=== PATIENT | male | born 1975 | race Caucasian/White ===

== ENCOUNTER 2017-04-14 07:16 | Emergency (ER) | payer MEDICAID ==
[~2017-04-14] VITALS: Ht 175.3 cm; Wt 78.9 kg
[2017-04-14] MEDS ORDERED: KLONOPIN1 MG ORAL (07:31)
[2017-04-14] MEDS ORDERED: NORCO 10-325 T1 EACH ORAL (07:31)
[2017-04-14] MEDS ORDERED: BENADRYL25 MG ORAL (07:31)
[2017-04-14] MEDS ORDERED: NYSTATIN15 G2 TP (07:40)
[2017-04-14] MEDS ORDERED: CLINDAMYCIN HC300 MG ORAL (07:40)
--- NOTE | 2017-04-14 07:45 | Emergency Room Report ---
History of Present Illness General Chief Complaint: Pain Source: Patient Present Illness HPI Patient presents with complaints of bilateral foot discomfort Patient reports that he had gone through a period of time without taking his shoes off he has seen two different emergency room and has not been given any prescriptions He reports the pain being 5/10 Bilateral feet Denies any fevers or chills denies any chest pain or shortness of breath denies any fall or other trauma Allergies: Coded Allergies: AMOXICILLIN (Verified Allergy, Unknown, 04/14/17) PENICILLINS (Verified Allergy, Unknown, 04/14/17) Patient History Past Medical History: see triage record Pertinent Family History: none Reviewed Nursing Documentation: PMH: Agreed, PSxH: Agreed Nursing Documentation-PMH History Of Psychiatric Problem: Yes - Anxiety Review of Systems All Other Systems: negative except mentioned in HPI Physical Exam Vital Signs Date Time Temp Pulse Resp B/P (MAP) Pulse Ox O2 Delivery O2 Flow Rate FiO2 04/14/17 07:19 98.2 62 16 114/68 100 Room Air Sp02 EP Interpretation: reviewed, normal General Appearance: well appearing, no apparent distress Head: normocephalic, atraumatic Eyes: bilateral eye PERRL, bilateral eye EOMI ENT: normal pharynx Neck: full range of motion, supple Cardiovascular #1: regular rate, rhythm Musculoskeletal: normal inspection Neurologic: alert, oriented x3, responsive Skin: other - Appearance of skin breakdown bilateral feet more specifically in the left side, evidence of trench foot appearance, with early blister formation , and skin breakdown between the toes as well, no obvious fluctuance however mild erythema is also visualized dorsally on the foot, pulses are intact Lymphatic: no adenopathy Medical Decision Making Diagnostic Impression: Primary Impression: trench foot ER Course Given the patient's presentation there appears to be some chronicity to the patient's findings. There appears to be transferred appearance with prolonged wet contact Given the erythema and the appearance is a fungal component and likely early cellulitis Patient was provided with oral antibiotics and Antifungal powder Patient reports that he has follow up today with his primary physician And will request podiatry referral Last Vital Signs Date Time Temp Pulse Resp B/P (MAP) Pulse Ox O2 Delivery O2 Flow Rate FiO2 04/14/17 07:19 98.2 62 16 114/68 100 Room Air Status: unchanged Disposition: HOME, SELF-CARE Condition: Stable Scripts Nystatin (NYSTATIN) 15 Gm Powder 15 GM TP BID for 10 Days, GM Prov: TAMMY KELLEY D.O. 04/14/17 Clindamycin Hcl (CLINDAMYCIN HCL) 300 Mg Capsule 300 MG ORAL THREE TIMES A DAY, #21 CAP Prov: TAMMY KELLEY D.O. 04/14/17 Patient Instructions: Athlete's Foot, [id number], Cellulitis, [id number] Additional Instructions: Patient is provided with the discharge instructions notified to follow up with primary doctor in the next 2-3 days otherwise return to the er with any worsening symptoms. Please note that this report is being documented using [employer] technology. This can lead to erroneous entry secondary to incorrect interpretation by the dictating instrument. TAMMY KELLEY D.O. Apr 14, 2017 07:45
[2017-04-14 07:47] VITALS: BP 132/74
== END 2017-04-14 08:00 | disposition home or self-care (01) ==
LOC: EMR 07:40
DX: T69.022A Immersion foot, left foot, initial encounter (principal); T69.021A Immersion foot, right foot, initial encounter; F41.9 Anxiety disorder, unspecified; Z88.1 Allergy status to other antibiotic agents; Z88.0 Allergy status to penicillin; X58.XXXA Exposure to other specified factors, initial encounter; Y92.9 Unspecified place or not applicable
CPT/HCPCS: 99283